=== PATIENT | male | born 1960 | race Caucasian/White ===

== ENCOUNTER → 2021-01-26 | Outpatient (REF) ==
--- NOTE | 2021-01-26 15:46 | Diagnostic Imaging Report ---
INDICATION: Right posterior knee pain. TIME OF EXAM: 3:44 PM. EXAMINATION: Three views of the right knee were obtained. FINDINGS: Alignment is normal. The articular surfaces are smooth. No fracture, dislocation or effusion is seen. IMPRESSION: No acute abnormality is detected. Dictated by: Dictated on workstation # [id number]
== END ==
LOC: OCC 15:18
PROVIDERS: ATTEND Family Medicine
DX: M25.561 Pain in right knee (principal)
CPT/HCPCS: 73562

== ENCOUNTER → 2021-01-29 | Outpatient (REF) | payer OTHER ==
--- NOTE | 2021-01-29 16:11 | Diagnostic Imaging Report ---
PROCEDURE: MRI right joint lower extremity without contrast. TECHNIQUE: Multiplanar, multisequence non contrast-enhanced MRI of the right lower extremity was accomplished. INDICATION: Right knee pain, felt a pop. COMPARISON: Radiographs from 01/26/2021. FINDINGS: No acute fracture is seen in the right knee. Alignment appears normal. There is a small right knee joint effusion. The articular cartilage in the patellofemoral compartment demonstrates full-thickness cartilage loss at the median ridge and medial facet. The cartilage in the medial and lateral compartments demonstrates mild surface irregularity with no large full-thickness defects. The medial meniscus demonstrates increased signal, likely from intrasubstance degeneration. There does appear to be extension to the inferior articular surface, consistent with tear. The lateral meniscus demonstrates intrasubstance degeneration, but no definite tear is seen. The anterior and posterior cruciate ligaments are intact. The medial collateral ligament demonstrates adjacent edema which is thought to be due to the underlying meniscal pathology. The lateral collateral ligamentous complex is intact. The extensor mechanism is intact. The medial and lateral retinacula are intact. There is a small leaking Giron's cyst. IMPRESSION: 1. 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 2. Mild cartilage loss in the right knee. 3. Small right knee joint effusion. Small leaking Giron's cyst. Dictated by: Dictated on workstation # [id number]
== END ==
LOC: OCC 12:26 → EDSTATUS 12:30
PROVIDERS: ATTEND Family Medicine
DX: M25.561 Pain in right knee (principal)
CPT/HCPCS: 73721

== ENCOUNTER 2022-01-16 12:45 | Inpatient (IN) | payer BC ==
[~2022-01-16] VITALS: Ht 183 cm; Wt 80.0 kg
--- NOTE | 2022-01-23 05:53 | HISTORY AND PHYSICAL ---
ADMISSION HISTORY AND PHYSICAL DATE OF ADMISSION: 01/30/2022 This will be for inpatient admission on 01/30/2022 for right total knee arthroplasty. The patient will require inpatient admission for pain management, need for physical therapy and gait abnormalities. INDICATION: The patient is a 61-year-old gentleman with longstanding right knee pain. He is undergoing treatment with injections as well as arthroscopy without relief. Radiographs reveal severe medial and patellofemoral arthrosis. At the time of arthroscopy, he was found to have grade IV changes medially in his patellofemoral joint. Due to functional impairment and failure to improve with conservative measures, the patient elected to proceed with surgical intervention. REVIEW OF SYSTEMS: No chest pain, no shortness of breath. No dysuria. PAST MEDICAL HISTORY: Headaches and arthritis. PAST SURGICAL HISTORY: NSR, tonsillectomy, nasal polypectomy, appendectomy, right knee arthroscopy. FAMILY HISTORY: Significant for cancer and diabetes. Primary care provider, Dakota Grant. MEDICATIONS: Paroxetine, aspirin, Zyrtec. ALLERGIES: No known drug allergies. SOCIAL HISTORY: The patient denies tobacco use. He drinks alcohol occasionally. PHYSICAL EXAMINATION: GENERAL: The patient is well-developed, well-nourished, in no acute distress. HEENT: Normocephalic, atraumatic. Pupils equal, round, reactive to light. Oropharynx is clear. NECK: Supple, with no lymphadenopathy. LUNGS: Clear to auscultation bilaterally. HEART: Regular rate and rhythm. ABDOMEN: Soft, nontender, nondistended. EXTREMITIES: The right knee demonstrates varus alignment. He has marked patellofemoral crepitus and pain with patellar loading. Range of motion is 0/3/125. No varus or valgus laxity. Negative anterior and posterior drawer, negative Justen. He ambulates with an antalgic gait on the right. IMPRESSION: Right knee severe osteoarthritis, unresponsive to conservative measures. PLAN: Right total knee arthroplasty. The risks, benefits, options, ramifications and recovery have been discussed at length with the patient. He understands and wishes to proceed. This will be for regular inpatient admission on 01/30/2022. Job ID: [id number] DocumentID: [id number] Dictated Date: 01/14/2022 09:23:22 Mainframe Architect Date: 01/14/2022 09:45:00 Dictated By: ALIVIA VALERA MD
[2022-01-23] MEDS ORDERED: ASPI81TA16 PO (09:19)
[2022-01-23] MEDS ORDERED: ACET-2267 PO (09:19)
[2022-01-30] VITALS (10 sets, daily range): BP systolic 115–163; BP diastolic 38–91
[2022-01-30] MEDS ORDERED: MIDAZOLAM 2 MG/2 ML (VERSED) VIAL ONE (06:36)
[2022-01-30] MEDS ORDERED: ROPIVACAINE 5MG/ML 30ML VIAL ONE (06:36)
[2022-01-30] MEDS ORDERED: fentaNYL INJ 100 MCG/2 ML AMP ONE (06:36)
[2022-01-30] MEDS ORDERED: LIDOCAINE PF 2% 5 ML (XYLOCAINE) VIAL ONE ×2 (06:39→06:54)
[2022-01-30] MEDS ORDERED: CEFUROXIME INJECTION 1,500 MG in NS (IVPB) 50 ML IV ONE (06:45)
[2022-01-30] MEDS ORDERED: ONDANSETRON 4 MG/2 ML (SDV) Z0FRAN ONE (06:54)
[2022-01-30] MEDS ORDERED: proPOfol 200 MG/20 ML (DIPRIVAN) VIAL IV ONE (06:54)
[2022-01-30] MEDS ORDERED: SEVOFLURANE (ULTANE) 15 ML INHAL SOLN ONE ×2 (06:54→08:58)
[2022-01-30] MEDS: LACTATED RINGERS 1,000 ML IV PRN ×2 (06:55→08:09)
[2022-01-30] MEDS ORDERED: morphine PCA 100 MG/100 ML BAG IV PRN (07:15)
[2022-01-30] MEDS ORDERED: diphenhydrAMINE 50 MG/ML INJ (BENADRYL) IVP PRN (07:15)
[2022-01-30] MEDS ORDERED: ONDANSETRON 4 MG/2 ML (SDV) Z0FRAN IVP PRN ×2 (07:15→09:30)
--- NOTE | 2022-01-30 07:15 | Progress Note-Pre Operative ---
Pre-Operative Progress Note Date of Available H&P: Jan 14, 2022 Date H&P Reviewed: Jan 30, 2022 Time H&P Reviewed: 07:11 Changes from last HP none Pre-Operative Diagnosis: right knee primary osteoarthritis ALIVIA VALERA MD Jan 30, 2022 07:15
--- NOTE | 2022-01-30 07:16 | Progress Note-Post Operative ---
Post-Operative Progess Note Surgeon (s)/Inspector Health Care Facilities (s) Surgeon ALIVIA VALERA MD Inspector Health Care Facilities: Matheus Richards Pre-Operative Diagnosis right knee primary osteoarthritis Post-Operative Diagnosis right knee primary osteoarthritis Procedure & Operative Findings Date of Procedure 01/30/22 Procedure Performed/Findings right total knee arthroplasty Anesthesia Type GETA Estimated Blood Loss Estimated blood loss (mL): minimal Specimens/Packing Specimens Removed none Packing: none ALIVIA VALERA MD Jan 30, 2022 07:16
--- NOTE | 2022-01-30 07:18 | D/C HH Face to Face Order ---
D/C Face to Face Orders Reconcile Patient Problems Problems Reviewed?: Yes Instructions for Patient Via [facility], Patient Instructions/FollowUp: three weeks Physician to follow Patient: three weeks Discharge Diet for Home: Regular Diet Patient Data-Allergies,Ht & Wt Patient Allergies: Coded Allergies: No Known Drug Allergies (Unverified , 01/23/22) Home Health Need/Face to Face Date of Face to Face: Jan 30, 2022 Clinical Findings: Muscle weakness, Pain with ambulation, Unsteady gait I have seen Pt zyar-xh-fyvw: Yes Discharged To: Home Diagnosis/Conditions: right total knee arthroplasty Patient is Homebound due to: Muscle weakness, Pain w/ambulation Homebound Status Due to the above stated illness, injury or surgical procedure (medical condition or diagnosis) and associated clinical findings, the patient is homebound because of his/her inability to leave home except with aid of a supportive device and/or person AND leaving the home requires a considerable and taxing effort or is medically contraindicated. Pt req the following assistanc: Walker Home Health Nursing Orders Home Health Services Order: Physical Therapy-Evaluate & Treat DC right knee domenica and apply steri strips 02/13/22 Therapy Orders Therapy Orders: Physical Therapy, PT to assess for OT Therapy Specific Orders: Eval assistive deivces, Teach enviro modifications/safety, Gait training, Increase strength/endurance, Provider maintenance therapy, Restore ROM Certify Stmt I certify that this patient is under my care and that I, a nurse practitioner or a physician; a doctor assistant working with me, had a face to face encounter that - meets the physician face to face encounter requirements with this patient as dated. ALIVIA VALERA MD Jan 30, 2022 07:18
[2022-01-30] MEDS ORDERED: INTRA-ARTICULAR IU ONE ×5 (07:30)
[2022-01-30] MEDS ORDERED: TRANEXAMIC ACID 100 MG/ML 10 ML INJECTION ONE (07:44)
[2022-01-30] MEDS ORDERED: HYDROmorphone 2 MG/ML VIAL (DILAUDID) ONE (08:00)
[2022-01-30] MEDS ORDERED: KETOROLAC 30 MG/ML VIAL ONE (08:41)
[2022-01-30] MEDS: SENNA W/DOCUSATE (SENOKOT S) TABLET PO SCH ×2 (09:00→20:45)
[2022-01-30] MEDS ORDERED: HYDROmorphone 2 MG/ML VIAL (DILAUDID) IV ONE (09:30)
[2022-01-30] MEDS ORDERED: MEPERIDINE (DEMEROL) INJ 50 MG/ML ONE (09:32)
[2022-01-30] MEDS: NS IV 1000 ML 1,000 ML IV SCH ×2 (10:37→16:32)
--- NOTE | 2022-01-30 11:00 | Progress Note ---
Standard Progress Note Progress Notes/Assess & Plan Date Seen by a Provider: Jan 30, 2022 Time Seen by a Provider: 09:27 Progress/Assessment & Plan post op check no complaints radiographs--Hw well positioned without fracture RLE--2 plus DP pulse with brisk cap refill intact DF and PF of toes and ankle sensation intact to light touch throughout s/p R TKA mobilize as able ALIVIA VALERA MD Jan 30, 2022 11:00
[2022-01-30] MEDS: oxyCODONE/APAP 5/325MG (PERCOCET 5) TABLET PO PRN (11:15)
--- NOTE | 2022-01-30 14:20 | OPERATIVE REPORT ---
DATE OF SERVICE: 01/30/2022 PREOPERATIVE DIAGNOSIS: Right knee primary osteoarthritis. POSTOPERATIVE DIAGNOSIS: Right knee primary osteoarthritis. PROCEDURE: Right total knee arthroplasty. SURGEON: Nelson Allen MD MOBILE HOME PARK MANAGER: Matheus Rainey, who assisted throughout the procedure and closed the incision. ANESTHESIA: General endotracheal by Gilbert Sotro CRNA. TOURNIQUET TIME: Approximately 60 minutes at 300 mmHg. ESTIMATED BLOOD LOSS: Minimal. DRAINS: None. COMPLICATIONS: None. POSTOPERATIVE PLAN: Routine protocol. The patient was transferred to recovery room awake and in stable condition. MATERIALS: MicroPort cemented size 6 femur, cemented size 6 tibia with a 10 mm insert and a cemented size 32 patellar button. STATEMENT OF MEDICAL NECESSITY: The patient is a 61-year-old gentleman with longstanding progressive right knee pain. He had undergone treatment with arthroscopy, injections and anti-inflammatories without relief. He had functional impairment, despite extensive conservative measures and because of this, elected to proceed with surgical intervention. DESCRIPTION OF PROCEDURE: After risks and benefits of the procedure were discussed and questions were answered and informed consent was signed and placed on the chart, the operative site was confirmed in the preoperative holding area initialed by the surgeon. The patient was then transferred to the operating room. After adequate levels of general endotracheal anesthetic were obtained, a timeout was called, confirming the operative site. The right lower extremity was prepped and draped in the usual sterile fashion with the leg elevated and the knee flexed, tourniquet was inflated to 300 mmHg. Standard anterior approach was utilized. Hemostasis was obtained with cautery. Medial parapatellar arthrotomy was performed, leaving 1 cm cuff for later reattachment. A portion of the fat pad was resected. A subperiosteal release was performed on the proximal medial tibia, being careful to stay on the bony surface. The ACL was resected. The intramedullary guide was passed into the femoral canal. The distal cutting block was placed. Distal cut was made. The femur was sized to a size 6. The 6 cutting block was placed parallel to the epicondylar axis and cuts were made from posterior to anterior. Subperiosteal release was then carefully performed on the posterior distal femur, being careful to stay on the bony surface. Intramedullary guide was then passed into the tibial canal and the cutting block was placed. The drop prasanth transected the intermalleolar axis and the cut was made, baseplate was pinned into position and the drop prasanth transected the intramedullary access and this was perforated with the drill and keel punch. The femoral trial was placed and the trochlear cut was made. The patella was then prepared by resecting 10 mm off the undersurface. The peg guide was placed and the peg holes were drilled. A 32 trial was placed with a 10 mm insert. The knee was taken through range of motion. Full extension was easily obtained, 120 degrees of flexion with gravity was easily obtained. The patella tracked well. There was no anterior/posterior medial/lateral laxity in flexion or extension. The trials were removed. The joint was irrigated with pulse lavage. Periarticular block was placed in the posterior capsule, medial and lateral retinaculum, extensor mechanism and subcutaneous tissues. The bone ends were irrigated. The tibial baseplate was cemented into position. Excess cement was removed. The superior surface was irrigated and dried and the polyethylene insert was placed. Distal femur was then irrigated and dried and the femoral prosthesis was cemented into position. Excess cement was removed. The knee was brought out in full extension until the cement cured. The undersurface of the patella was irrigated and dried and the patellar button was cemented into position. Excess cement was removed. Once the cement had cured, the knee was taken through a range of motion. Full extension was easily obtained, 120 degrees of flexion with gravity was easily obtained. The patella tracked well. There was no anterior/posterior medial/lateral laxity in flexion or extension. The joint was further irrigated with pulse lavage. The arthrotomy was closed with #2 Tevdek in ewnybu-tf-pwxcu interrupted fashion. The knee was flexed. The repair was stable. Subcutaneous tissues were irrigated with pulse lavage using a total of 6 liters throughout the procedure. 0 Vicryl was used for this deep subcutaneous layer, 2-0 Vicryl for the superficial subcutaneous layer, domenica were used on the skin. A soft dressing was applied. The tourniquet was deflated and the patient was transferred to recovery room awake and in stable condition. Job ID: [id number] DocumentID: [id number] Dictated Date: 01/30/2022 09:21:31 Supervisor Record Press Date: 01/30/2022 14:17:00 Dictated By: NELSON ALLEN MD
--- NOTE | 2022-01-30 14:26 | Physical Therapy Evaluation ---
PT Evaluation-General Medical Diagnosis Admission Date Jan 30, 2022 at 05:54 Medical Diagnosis: right TKA Onset Date: Jan 30, 2022 Therapy Diagnosis Therapy Diagnosis: Gait deficit Precautions Precautions/Isolations: Fall Prevention, Standard Precautions Weight Bear Status Right Lower Extremity: Right Weight Bearing/Tolerated Left Lower Extremity: Left Full Weight Bearing Referral Physician: Dr. Allen Reason for Referral: Evaluation/Treatment Medical History Reviewed History: Yes Social History Home: Multilevel Current Living Status: Spouse Entry Into Home: Stairs Without Railing PT Steps Into Home: 3 PT Steps Inside Home: 14 Prior Prior Level of Function SCALE: Activities may be completed with or without assistive devices. 2-Iwywalfdti-cumplra completes the activity by him/herself with no assistance from a helper. 5-Set-up or Clean-up Assistance-helper sets up or cleans up; patient completes activity. Butler assists only prior to or following the activity. 4-Supervision or Touching Assistance-helper provides verbal cues and/or touching/steadying and/or contact guard assistance as patient completes activity. Assistance may be provided throughout the activity or intermittently. 3-Partial/Moderate Assistance-helper does LESS THAN HALF the effort. Butler lifts, holds or supports trunk or limbs, but provides less than half the effort. 2-Substantial/Maximal Assistance-helper does MORE THAN HALF the effort. Butler lifts or holds trunk or limbs and provides more than half the effort. 9-Wawdzegzl-tpklwz does ALL the effort. Patient does none of the effort to complete the activity. Or, the assistance of 2 or more helpers is required for the patient to complete the activity. If activity was not attempted, code reason: 7-Patient Refused. 9-Not Applicable-not attempted and the patient did not perform the activity before the current illness, exacerbation or injury. 10-Not Attempted due to Environmental Limitations-(lack of equipment, weather restraints, etc.). 88-Not Attempted due to Medical Conditions or Safety Concerns. Bed Mobility: 6 Transfers (B,C,W/C): 6 Gait: 6 Stairs: 6 Indoor Mobility (Ambulation): Independent Stairs: Independent Prior Devices Use: None FWW, Crutches PT Evaluation-Current Objective Patient Orientation: Person, Time, Situation Attachments: Polar Pack, IV ROM/Strength ROM Lower Extremities Left WFLs all planes; Right knee extension 15 degrees from neutral, knee flexion 95 degrees Strength Lower Extremities Left 5/5 all planes; Right knee extension 3/5, flexion 3/5. All other right LE planes 5/5 Sensory Vision: Functional Hearing: Functional Sensation Right Lower Extremit: Intact Sensation Left Lower Extremity: Intact Transfers Roll Left to Right (QC): 4 Sit to Lying (QC): 4 Lying to Sitting/Side of Bed(Q: 4 Sit to Stand (QC): 4 Chair/Bjz-jn-Ialmi Xfer(QC): 4 Toilet Transfer (QC): 4 Gait Does the Patient Walk?: Yes Mode of Locomotion: Walk Anticipated Mode of Locomotion: Walk Walk 10 feet (QC): 4 Walk 50 ft with 2 Turns(QC): 4 Distance: 80 feet Gait Assistive Device: FWW Balance Sitting Static: Normal Sitting Dynamic: Normal Standing Static: Good Standing Dynamic: Good Assessment/Needs Patient tolerated evaluation well. Demonstrates SBA for all bed mobility and transfers. Patient ambulates 80 feet with FWW, with SBA and verbal cues for safety, progression, TKE and step length. Patient lacks ~10-15 degrees TKE in stance phase of right LE. He also attempts to take too large of a step with right LE, increasing his fall risk and placing him too close to the FWW. Patient in chair post treatment with all needs met, nursing notified, call light in hand. Rehab Potential: Good PT Intern Product Marketing Manager Goals Halfway Goals PT Intern Product Marketing Manager Goals Time Frame: Feb 15, 2022 Roll Left & Right (QC): 6 Sit to Lying (QC): 6 Lying-Sitting on Side/Bed(QC): 6 Sit to Stand (QC): 6 Chair/Ohq-yh-Ccwrf Xfer(QC): 6 Toilet Transfer (QC): 6 Does the Patient Walk: Yes Walk 10 feet (QC): 6 Walk 50ft with 2 Turns (QC): 6 Walk 150 ft (QC): 6 Walking 10ft on Uneven Surface: 6 1 Step (curb) (QC): 4 4 Steps (QC): 4 12 Steps (QC): 4 PT Plan Problem List Problem List: Activity Tolerance, Functional Strength, Safety, Balance, Gait, Transfer, Bed Mobility, ROM Treatment/Plan Treatment Plan: Continue Plan of Care Treatment Plan: Bed Mobility, Education, Functional Activity Tram, Functional Strength, Gait, Safety, Therapeutic Exercise, Transfers Treatment Duration: Feb 16, 2022 Frequency: 11 times per week Estimated Hrs Per Day: .25 hour per day Patient and/or Family Agrees t: Yes Safety Risks/Education Patient Education: Gait Training Teaching Recipient: Patient Teaching Methods: Demonstration, Discussion Response to Teaching: Verbalize Understanding, Return Demonstration Time Time In: 1324 Time Out: 1350 DATE: Jan 30, 2022 Total Billed Treatment Time: 26 Total Billed Treatment Visit, Lakhwinder DORANTES JOHN A PT Jan 30, 2022 14:26
[2022-01-30] MEDS: CEFUROXIME INJECTION 750 MG in NS (IVPB) 50 ML IV SCH ×2 (15:43→23:36)
--- NOTE | 2022-01-30 16:30 | Diagnostic Imaging Report ---
EXAMINATION: Right knee, two view. HISTORY: Postop. COMPARISON: None available. FINDINGS: There are postsurgical changes of right total knee arthroplasty. Skin domenica and subcutaneous gas are present. There is gas in the joint space. No acute fracture is seen. No dislocation. Alignment is near-anatomic. IMPRESSION: Expected postsurgical changes of right total knee arthroplasty. Dictated by: Dictated on workstation # [id number]
--- NOTE | 2022-01-30 16:44 | Consultation - Hospitalist ---
HPI History of Present Illness: HPI/Chief Complaint Patient is a 61-year-old male with past medical history of osteoarthritis who was admitted to the hospital by Dr. Allen for total knee arthroplasty. I have seen him postoperatively and he reports doing very well. He states his pain is controlled. Heis about to work with physical therapy. His blood pressure had been a little bit elevated which she says is abnormal for him and we discussed management of this. He has no other complaints. I am consulted for medical management. Source: patient Date Seen 01/30/22 Attending Physician Dakota Grant MD PCP Admitting Physician: Nelson Allen MD Attending Physician: Nelson Allen MD Referring Physician Date of Admission Jan 30, 2022 at 05:54 Home Medications & Allergies Home Medications Reviewed patient Home Medication Reconciliation performed by pharmacy medication reconciliations bioinformatics research technician and/or nursing. Patients Allergies have been reviewed. Allergies Allergies Coded Allergies No Known Drug Allergies (Ktpmpssmok39/7/22) Past Wzfutdb-Jbzchv-Lkkdbz Hx Immunizations Up To Date Date of Influenza Vaccine: Nov 23, 2021 First/Initial COVID19 Vaccinat: 2020 Second COVID19 Vaccination Christiano: 2020 Seasonal Allergies Seasonal Allergies: Yes Past Medical History Surgeries: Appendectomy, Orthopedic Currently Using CPAP: No Currently Using BIPAP: No Anxiety Blood Disorders: No Family Medical History Reviewed Nursing Family Hx Review of Systems Constitutional: no symptoms reported EENTM: no symptoms reported Respiratory: no symptoms reported Cardiovascular: no symptoms reported Gastrointestinal: no symptoms reported Genitourinary: no symptoms reported Musculoskeletal: joint pain Skin: no symptoms reported Psychiatric/Neurological: No Symptoms Reported Physical Exam Physical Exam Vital Signs Vital Signs - First Documented 01/30/22 07:18 Temp 36.2 Pulse 80 Resp 18 B/P (MAP) 146/66 (92) Pulse Ox 98 O2 Delivery Room Air Capillary Refill : Less Than 3 Seconds Height, Weight, BMI Height: '" Weight: lbs. oz. kg; 23.88 BMI Method: General Appearance: No Apparent Distress, WD/WN HEENT: PERRL/EOMI, Moist Mucous Membranes; No Scleral Icterus (L), No Scleral Icterus (R) Neck: Normal Inspection, Supple Respiratory: Lungs Clear, No Accessory Muscle Use, No Respiratory Distress Cardiovascular: Regular Rate, Rhythm, No Murmur Gastrointestinal: Normal Bowel Sounds, Non Tender, Soft Extremity: Normal Capillary Refill, No Calf Tenderness, No Pedal Edema, Other (alexandria hose in place, surgical dressing noted) Neurologic/Psychiatric: Alert, Oriented x3, Normal Mood/Affect Skin: Normal Color, Warm/Dry Results Results/Procedures Labs Laboratory Tests 01/31/22 05:30 02/01/22 05:45 Patient resulted labs reviewed. Imaging: Reviewed Imaging Report Imaging [facility] [place], [place] NAME: [facility] REC#: [id number] PT STATUS: ADM IN : 1960 PHYSICIAN: BECKI JASON ADMIT DATE: 01/30/22 Signed Date of Exam:01/30/22 KNEE, RIGHT, 2 VIEWS EXAMINATION: Right knee, two view. HISTORY: Postop. COMPARISON: None available. FINDINGS: There are postsurgical changes of right total knee arthroplasty. Skin domenica and subcutaneous gas are present. There is gas in the joint space. No acute fracture is seen. No dislocation. Alignment is near-anatomic. IMPRESSION: Expected postsurgical changes of right total knee arthroplasty. Dictated by: Dictated on workstation # [id number] Dict: 01/30/227 Trans: 01/30/221929 [facility] [id number] Interpreted by: HANNAH JOHNSON MD Electronically signed by: HANNAH JOHNSON MD 01/30/221929 Assessment/Plan Assessment and Plan Assess & Plan/Chief Complaint Right Knee OA s/p TKA management per primary REHABILITATION COUNSELOR for pain control PT/OT Bowel regimen Elevated BP Trend Likely due to sugery and pain DVT ppx: Lovenox Will round prn, please call with any questions LAUREN PAZ MD Jan 30, 2022 16:44
[2022-01-31 03:35] VITALS: BP 127/62
[2022-01-31] MEDS: NS IV 1000 ML 1,000 ML IV SCH ×2 (05:16→16:51)
[2022-01-31] MEDS: MULTIVIT W/MINERALS TAB (THERAGRAN M) PO SCH (05:16)
[2022-01-31 06:01] LABS: HEMOGLOBIN 11.8 g/dL (13.3-17.7)
[2022-01-31] MEDS: oxyCODONE/APAP 5/325MG (PERCOCET 5) TABLET PO PRN ×8 (07:53→22:55)
[2022-01-31] MEDS: ENOXAPARIN INJECTION 30 MG/0.3 ML SYR SC SCH ×2 (07:54→20:43)
--- NOTE | 2022-01-31 08:02 | Progress Note ---
Standard Progress Note Progress Notes/Assess & Plan Date Seen by a Provider: Jan 31, 2022 Time Seen by a Provider: 07:52 Progress/Assessment & Plan post op check no complaints radiographs--Hw well positioned without fracture RLE--2 plus DP pulse with brisk cap refill intact DF and PF of toes and ankle sensation intact to light touch throughout s/p R TKA mobilize as able Final Diagnosis no complaints Vital Signs Date Time Temp Pulse Resp B/P (MAP) Pulse Ox O2 Delivery O2 Flow Rate FiO2 01/31/22 05:31 16 01/31/22 03:35 36.5 75 18 127/62 (83) 98 Room Air 01/30/22 23:27 37.3 83 18 127/38 (67) 97 Room Air 01/30/22 20:59 Room Air 01/30/22 19:15 37.1 99 20 115/70 (85) 95 Room Air 01/30/22 15:34 37.0 90 20 159/73 (101) 97 Room Air 01/30/22 12:14 36.1 84 18 163/80 (107) 98 Room Air 01/30/22 12:00 16 01/30/22 10:00 36.6 20 141/77 (98) 94 Room Air 01/30/22 10:00 Room Air 01/30/22 09:50 20 142/77 (98) 94 Room Air 01/30/22 09:45 OxyMask 2.00 01/30/22 09:40 20 100 OxyMask 3.00 01/30/22 09:30 OxyMask 4.00 01/30/22 09:30 20 146/91 (109) 96 OxyMask 4.00 01/30/22 09:20 20 145/75 (98) 100 OxyMask 10.00 01/30/22 09:15 OxyMask 10.00 01/30/22 09:09 36.6 18 123/61 (81) 100 OxyMask 10.00 01/30/22 09:09 OxyMask 10.00 I & O 01/31/22 07:00 Intake Total 3020 ml Balance 3020 ml Laboratory Tests Test 01/31/22 05:30 Range/Units Hemoglobin 11.8 L 13.3-17.7 g/dL Hematocrit 36 L 40-54 % RLE--dressing intact ambulating in brown s/p RTKA doing well PT/OT ALIVIA VALERA MD Jan 31, 2022 08:02
[2022-01-31] MEDS: SENNA W/DOCUSATE (SENOKOT S) TABLET PO SCH ×2 (08:50→20:42)
[2022-01-31] MEDS: ASPIRIN E.C. 81 MG (ECOTRIN) TAB PO SCH (08:51)
--- NOTE | 2022-01-31 10:10 | Physical Therapy Daily Note ---
PT Daily Note-Current Subjective Patient agrees to PT. Pain Numeric Pain Scale: 10-Worst Possible Pain Location: Right Location Body Site: Knee Pain Description: Acute Comment: SCARRER and pain pill issued Section J - Health Conditions 1. Rarely or not at all 2. Occasionally 3. Frequently 4. Almost constantly 8. Unable to answer Pain Effect on Sleep: 2 Pain Interference with Therapy: 1 Pain Interference w/Day-to-Day: 2 Mental Status Patient Orientation: Normal For Age Attachments: Polar Pack, IV Transfers SCALE: Activities may be completed with or without assistive devices. 8-Aaalqfitof-kuvadri completes the activity by him/herself with no assistance from a helper. 5-Set-up or Clean-up Assistance-helper sets up or cleans up; patient completes activity. [place] assists only prior to or following the activity. 4-Supervision or Touching Assistance-helper provides verbal cues and/or touching/steadying and/or contact guard assistance as patient completes activity. Assistance may be provided throughout the activity or intermittently. 3-Partial/Moderate Assistance-helper does LESS THAN HALF the effort. [place] lifts, holds or supports trunk or limbs, but provides less than half the effort. 2-Substantial/Maximal Assistance-helper does MORE THAN HALF the effort. [place] lifts or holds trunk or limbs and provides more than half the effort. 5-Rwljxcnzq-xstbre does ALL the effort. Patient does none of the effort to complete the activity. Or, the assistance of 2 or more helpers is required for the patient to complete the activity. If activity was not attempted, code reason: 7-Patient Refused. 9-Not Applicable-not attempted and the patient did not perform the activity before the current illness, exacerbation or injury. 10-Not Attempted due to Environmental Limitations-(lack of equipment, weather restraints, etc.). 88-Not Attempted due to Medical Conditions or Safety Concerns. Sit to Stand (QC): 6 Weight Bearing Right Lower Extremity: Right Weight Bearing/Tolerated Left Lower Extremity: Left Full Weight Bearing Gait Training Distance: 500' Walk 10 feet (QC): 5 Walk 50 ft with 2 Turns(QC): 5 Walk 150 ft (QC): 5 Gait Assistive Device: FWW reciprocal pattern/antalgic Exercises Supine Ex: Ankle pumps, Quad Set, Heel Slides, Straight leg raise Supine Reps: 15 Seated Therapy Exercises: Long arc quads Seated Reps: 15 Assessment AROM improving right knee 5-80 degrees. Patient progressing per treatment plan and will dismiss to home tomorrow after session. PT Fpc Goals Fpc Goals PT Sales And Distribution Clerk Goals Time Frame: Feb 15, 2022 Roll Left & Right (QC): 6 Sit to Lying (QC): 6 Lying-Sitting on Side/Bed(QC): 6 Sit to Stand (QC): 6 Chair/Sza-mh-Mjaor Xfer(QC): 6 Toilet Transfer (QC): 6 Does the Patient Walk: Yes Walk 10 feet (QC): 6 Walk 50ft with 2 Turns (QC): 6 Walk 150 ft (QC): 6 Walking 10ft on Uneven Surface: 6 1 Step (curb) (QC): 4 4 Steps (QC): 4 12 Steps (QC): 4 PT Plan Treatment/Plan Treatment Plan: Continue Plan of Care Treatment Plan: Bed Mobility, Education, Functional Activity Tram, Functional Strength, Gait, Safety, Therapeutic Exercise, Transfers Treatment Duration: Feb 16, 2022 Frequency: 11 times per week Estimated Hrs Per Day: .25 hour per day Patient and/or Family Agrees t: Yes Time Time In: 730 Time Out: 754 DATE: Jan 31, 2022 Total Billed Treatment Time: 24 Total Billed Treatment 1 visit EX 14 min GT 10 min BERNABE BILLY PT Jan 31, 2022 10:10
[2022-01-31 12:02] VITALS: BP 115/63
--- NOTE | 2022-01-31 12:40 | Anesthesia-General Post-Op ---
General Patient Condition Mental Status/LOC: Same as Preop Cardiovascular: Satisfactory Nausea/Vomiting: Absent Respiratory: Satisfactory Pain: Controlled Complications: Absent Post Op Complications Complications None Follow Up Care/Instructions Patient Instructions None needed. Anesthesia/Patient Condition Patient Condition Patient is doing well, no complaints, stable vital signs, no apparent adverse anesthesia problems. No complications reported per nursing. GEO PAUL CRNA Jan 31, 2022 12:40
--- NOTE | 2022-01-31 14:15 | Occupational Therapy Eval ---
OT Evaluation-General/PLF Medical Diagnosis Admission Date Jan 30, 2022 at 05:54 Medical Diagnosis: right TKA Onset Date: Jan 30, 2022 Therapy Diagnosis Therapy Diagnosis: n/a Precautions Precautions/Isolations: Fall Prevention, Standard Precautions Referral Physician: Dr. Allen Referral Reason: Evaluation/Treatment Medical History Additional Medical History arthritis, headaches Current History s/p R TKA 01/31/22 Social History Home: [facility] Current Living Status: Spouse Entry Into Home: Stairs Without Railing Steps Into Home: 3 Steps Inside Home: 14 ADL-Prior Level of Function SCALE: Activities may be completed with or without assistive devices. 0-Vjgvyrrguf-wvhvpjz completes the activity by him/herself with no assistance from a helper. 5-Set-up or Clean-up Assistance-helper sets up or cleans up; patient completes activity. [place] assists only prior to or following the activity. 4-Supervision or Touching Assistance-helper provides verbal cues and/or touching/steadying and/or contact guard assistance as patient completes activity. Assistance may be provided throughout the activity or intermittently. 3-Partial/Moderate Assistance-helper does LESS THAN HALF the effort. [place] lifts, holds or supports trunk or limbs, but provides less than half the effort. 2-Substantial/Maximal Assistance-helper does MORE THAN HALF the effort. [place] lifts or holds trunk or limbs and provides more than half the effort. 6-Qpuizllcy-nntrix does ALL the effort. Patient does none of the effort to complete the activity. Or, the assistance of 2 or more helpers is required for the patient to complete the activity. If activity was not attempted, code reason: 7-Patient Refused. 9-Not Applicable-not attempted and the patient did not perform the activity before the current illness, exacerbation or injury. 10-Not Attempted due to Environmental Limitations-(lack of equipment, weather restraints, etc.). 88-Not Attempted due to Medical Conditions or Safety Concerns. ADL PLOF Comments Pt reports being IND with ADLS and functional mobility at [facility], no AD. Pt lives in a 2 story house with a walk out basement. Pt could stay at the basement level where his clothes, bathroom and bedroom are located, his would have to bring him meals. Pt's staircase to the 2nd level is a spiral staircase. Pt plans to have his daughter stay for a little while to assist as needed. Pt has a walk in shower. 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 OT Current Status Subjective Pt up ad krupa in room upon OT arrival. Pt appears emotional throughout tx due to pain in R knee. Mental Status/Objective Patient Orientation: Person, Place, Time, Situation Attachments: IV, Polar Pack Current Hand Dominance: Right Upper Extremity ROM WFL Upper Extremity Strength WFL ADL-Treatment Eating (QC): 6 Oral Hygiene (QC): 6 Toileting Hygiene (QC): 6 Other Treatments Pt up ad krupa in room, gathering items from bag on floor. Pt sat in recliner and performed functional mobility/transfers independently. Pt states no concerns with his ability to complete ADLs upon discharging, and pt's family can assist as needed. Pt declined need for further OT services. Post tx, pt in recliner, call light in reach and all needs met. Education OT Patient Education: Correct positioning, Energy conservation, Modified ADL techniques, Progress toward Goal/Update tx plan, Purpose of tx/functional activities, Rehab process Teaching Recipient: Patient Teaching Methods: Discussion Response to Teaching: Verbalize Understanding OT Director For [employer] Goals Prison Goals 1=Demonstrate adherence to instructed precautions during ADL tasks. 2=Patient will verbalize/demonstrate understanding of assistive devices/modifications for ADL. 3=Patient will improve strength/tolerance for activity to enable patient to perform ADL's. OT Education/Plan Problem List/Assessment Assessment: No Skilled OT Needs ID'd no skilled OT services indicated at this time, as pt has no concerns with his ability to complete ADLs and declines further OT services. Discharge Recommendations Plan/Recommendations: Discharge/Goals Met Treatment Plan/Plan of Care Patient would benefit from OT for education, treatment and training to promote independence in ADL's, mobility, safety and/or upper extremity function for ADL's. Plan of Care: ADL Retraining, Functional Mobility, UE Funct Exercise/Act Treatment Duration: Jan 31, 2022 Frequency: 1 time per week (eval only) Rehab Potential: Good Time Start Time: 13:18 Stop Time: 13:35 DATE: Jan 31, 2022 Total Time Billed (hr/min): 17 Billed Treatment Time 1, EVL VIKY RUIZ OT Jan 31, 2022 14:15
--- NOTE | 2022-01-31 14:30 | Physical Therapy Daily Note ---
PT Daily Note-Current Subjective Patient in 10 right knee pain. Pain Numeric Pain Scale: 10-Worst Possible Pain Location: Right Location Body Site: Knee Pain Description: Heavy Comment: pain pill issued prior Section J - Health Conditions 1. Rarely or not at all 2. Occasionally 3. Frequently 4. Almost constantly 8. Unable to answer Pain Effect on Sleep: 2 Pain Interference with Therapy: 3 Pain Interference w/Day-to-Day: 2 Mental Status Patient Orientation: Normal For Age Attachments: Polar Pack, IV Transfers SCALE: Activities may be completed with or without assistive devices. 1-Muityffnht-tqppgvv completes the activity by him/herself with no assistance from a helper. 5-Set-up or Clean-up Assistance-helper sets up or cleans up; patient completes activity. [place] assists only prior to or following the activity. 4-Supervision or Touching Assistance-helper provides verbal cues and/or touching/steadying and/or contact guard assistance as patient completes activity. Assistance may be provided throughout the activity or intermittently. 3-Partial/Moderate Assistance-helper does LESS THAN HALF the effort. [place] lifts, holds or supports trunk or limbs, but provides less than half the effort. 2-Substantial/Maximal Assistance-helper does MORE THAN HALF the effort. [place] lifts or holds trunk or limbs and provides more than half the effort. 6-Iuurwykdy-bkjwet does ALL the effort. Patient does none of the effort to complete the activity. Or, the assistance of 2 or more helpers is required for the patient to complete the activity. If activity was not attempted, code reason: 7-Patient Refused. 9-Not Applicable-not attempted and the patient did not perform the activity before the current illness, exacerbation or injury. 10-Not Attempted due to Environmental Limitations-(lack of equipment, weather restraints, etc.). 88-Not Attempted due to Medical Conditions or Safety Concerns. Sit to Stand (QC): 6 Weight Bearing Right Lower Extremity: Right Weight Bearing/Tolerated Left Lower Extremity: Left Full Weight Bearing Gait Training Distance: 250' Walk 10 feet (QC): 6 Walk 50 ft with 2 Turns(QC): 6 Walk 150 ft (QC): 6 Gait Assistive Device: FWW steady, antalgic gait sequence Exercises Supine Ex: Quad Set, Heel Slides Supine Reps: 15 Seated Therapy Exercises: Long arc quads Seated Reps: 15 Assessment Patient has difficulty with activating quad musculature. Patient progressing slow with treatment plan. PT Lead Net Software Developer Goals Residential Goals PT Residential Goals Time Frame: Feb 15, 2022 Roll Left & Right (QC): 6 Sit to Lying (QC): 6 Lying-Sitting on Side/Bed(QC): 6 Sit to Stand (QC): 6 Chair/Onl-zj-Bmgjq Xfer(QC): 6 Toilet Transfer (QC): 6 Does the Patient Walk: Yes Walk 10 feet (QC): 6 Walk 50ft with 2 Turns (QC): 6 Walk 150 ft (QC): 6 Walking 10ft on Uneven Surface: 6 1 Step (curb) (QC): 4 4 Steps (QC): 4 12 Steps (QC): 4 PT Plan Treatment/Plan Treatment Plan: Continue Plan of Care Treatment Plan: Bed Mobility, Education, Functional Activity Tram, Functional Strength, Gait, Safety, Therapeutic Exercise, Transfers Treatment Duration: Feb 16, 2022 Frequency: 11 times per week Estimated Hrs Per Day: .25 hour per day Patient and/or Family Agrees t: Yes Time Time In: 1327 Time Out: 1350 DATE: Jan 31, 2022 Total Billed Treatment Time: 23 Total Billed Treatment 1 visit EX 13 min GT 10 min BERNABE BILLY PT Jan 31, 2022 14:30
[2022-01-31 16:00] VITALS: BP 125/57
[2022-01-31] MEDS: CYCLOBENZAPRINE 10 MG (FLEXERIL) TAB PO PRN (18:24)
[2022-01-31 19:12] VITALS: BP 169/63
--- NOTE | 2022-01-31 23:15 | DISCHARGE SUMMARY ---
DIAGNOSES: 1. Right knee primary osteoarthritis. 2. Headaches. PROCEDURE: Right total knee arthroplasty. SUMMARY: The patient is a 61-year-old gentleman who underwent a right total knee arthroplasty on the date of admission. Postoperatively, he did well. At the time of discharge, he was tolerating his diet well and tolerating pain with oral pain medication. His wound was clean and dry. No calf tenderness. CONDITION AT DISCHARGE: Good. DISCHARGE DIET: Regular. FOLLOWUP: Followup is in 3 weeks. DISCHARGE MEDICATIONS: Home medications and one aspirin per day for 30 days and Percocet as needed for pain. ACTIVITIES: Weightbearing as tolerated with a walker. Physical therapy will be arranged. Job ID: [id number] DocumentID: [id number] Dictated Date: 01/31/2022 08:01:27 Poultry Husbandman Date: 01/31/2022 23:15:00 Dictated By: ALIVIA VALERA MD
[2022-02-01 00:21] VITALS: BP 135/68
[2022-02-01] MEDS: CYCLOBENZAPRINE 10 MG (FLEXERIL) TAB PO PRN ×2 (00:23→06:32)
[2022-02-01] MEDS: oxyCODONE/APAP 5/325MG (PERCOCET 5) TABLET PO PRN ×3 (01:35→06:04)
[2022-02-01 03:58] VITALS: BP 152/75
[2022-02-01] MEDS: NS IV 1000 ML 1,000 ML IV SCH (05:04)
[2022-02-01 06:14] LABS: HEMOGLOBIN 10.6 g/dL (13.3-17.7)
[2022-02-01] MEDS: MULTIVIT W/MINERALS TAB (THERAGRAN M) PO SCH (06:32)
--- NOTE | 2022-02-01 06:56 | Progress Note ---
Standard Progress Note Progress Notes/Assess & Plan Date Seen by a Provider: Feb 01, 2022 Time Seen by a Provider: 06:55 Progress/Assessment & Plan post op check no complaints radiographs--Hw well positioned without fracture RLE--2 plus DP pulse with brisk cap refill intact DF and PF of toes and ankle sensation intact to light touch throughout s/p R TKA mobilize as able Final Diagnosis no complaints Laboratory Tests Test 02/01/22 05:45 Range/Units Hemoglobin 10.6 L 13.3-17.7 g/dL Hematocrit 32 L 40-54 % Vital Signs Date Time Temp Pulse Resp B/P (MAP) Pulse Ox O2 Delivery O2 Flow Rate FiO2 02/01/22 05:34 18 02/01/22 04:35 37.4 02/01/22 03:58 37.4 89 20 152/75 (100) 99 Room Air 02/01/22 02:05 37.3 02/01/22 00:21 37.3 97 20 135/68 (90) 96 Room Air 01/31/22 22:23 16 01/31/22 20:58 96 Room Air 01/31/22 20:53 Room Air 01/31/22 19:58 37.6 01/31/22 19:12 37.6 89 20 169/63 (98) 96 Room Air 01/31/22 16:00 37.2 85 20 125/57 (79) 99 Room Air 01/31/22 12:02 37.2 88 19 115/63 (80) 98 Room Air 01/31/22 08:24 98 Room Air 2.00 I & O 02/01/22 06:59 Intake Total 4565 ml Balance 4565 ml RLE--incision clean and dry no calf tenderness neg Thomas's s/p RTKA doing well DC home after PT today ALIVIA VALERA MD Feb 01, 2022 06:56
[2022-02-01] MEDS ORDERED: morphine INJ 4 MG/ML 1 ML (VIAL/SYRINGE) IVP PRN (07:00)
[2022-02-01 08:00] VITALS: BP 137/74
[2022-02-01] MEDS: SENNA W/DOCUSATE (SENOKOT S) TABLET PO SCH (09:02)
[2022-02-01] MEDS: ASPIRIN E.C. 81 MG (ECOTRIN) TAB PO SCH (09:02)
[2022-02-01] MEDS: ENOXAPARIN INJECTION 30 MG/0.3 ML SYR SC SCH (09:02)
--- NOTE | 2022-02-01 09:48 | Physical Therapy Daily Note ---
PT Daily Note-Current Subjective Patient agrees to PT. Pain Numeric Pain Scale: 5-Moderate Pain Location: Right Location Body Site: Knee Pain Description: Acute Section J - Health Conditions 1. Rarely or not at all 2. Occasionally 3. Frequently 4. Almost constantly 8. Unable to answer Pain Effect on Sleep: 2 Pain Interference with Therapy: 2 Pain Interference w/Day-to-Day: 2 Mental Status Patient Orientation: Normal For Age Transfers SCALE: Activities may be completed with or without assistive devices. 6-Jeopsvrujz-nytalci completes the activity by him/herself with no assistance from a helper. 5-Set-up or Clean-up Assistance-helper sets up or cleans up; patient completes activity. [place] assists only prior to or following the activity. 4-Supervision or Touching Assistance-helper provides verbal cues and/or touching/steadying and/or contact guard assistance as patient completes activity. Assistance may be provided throughout the activity or intermittently. 3-Partial/Moderate Assistance-helper does LESS THAN HALF the effort. [place] lifts, holds or supports trunk or limbs, but provides less than half the effort. 2-Substantial/Maximal Assistance-helper does MORE THAN HALF the effort. [place] lifts or holds trunk or limbs and provides more than half the effort. 6-Oranbamjr-cjxhvc does ALL the effort. Patient does none of the effort to complete the activity. Or, the assistance of 2 or more helpers is required for the patient to complete the activity. If activity was not attempted, code reason: 7-Patient Refused. 9-Not Applicable-not attempted and the patient did not perform the activity befo re the current illness, exacerbation or injury. 10-Not Attempted due to Environmental Limitations-(lack of equipment, weather re straints, etc.). 88-Not Attempted due to Medical Conditions or Safety Concerns. Sit to Stand (QC): 6 Weight Bearing Right Lower Extremity: Right Weight Bearing/Tolerated Left Lower Extremity: Left Full Weight Bearing Gait Training Distance: 200' x 2 Walk 10 feet (QC): 6 Walk 50 ft with 2 Turns(QC): 6 Walk 150 ft (QC): 6 Gait Assistive Device: FWW reciprocal pattern/antalgic Stair Training Stair Training: Handrails/: 1 handrail, uses walker #of Steps: 12 1 Step (curb) (QC): 4 4 Steps (QC): 4 12 Steps (QC): 4 Stairs: Pattern: Step to Exercises Supine Ex: Quad Set, Heel Slides Supine Reps: 15 Seated Therapy Exercises: Ankle pumps, Long arc quads Seated Reps: 15 Assessment Patient continues to have difficulty with right quad activation. Was able to perform stair training. Unable to perform SLR or LAQ right LE. Patient dismissing to home with spouse and home health. PT Seismic Interpreter Goals Snf Goals PT Seismic Interpreter Goals Time Frame: Feb 15, 2022 Roll Left & Right (QC): 6 Sit to Lying (QC): 6 Lying-Sitting on Side/Bed(QC): 6 Sit to Stand (QC): 6 Chair/Cyd-xu-Ffmbv Xfer(QC): 6 Toilet Transfer (QC): 6 Does the Patient Walk: Yes Walk 10 feet (QC): 6 Walk 50ft with 2 Turns (QC): 6 Walk 150 ft (QC): 6 Walking 10ft on Uneven Surface: 6 1 Step (curb) (QC): 4 4 Steps (QC): 4 12 Steps (QC): 4 PT Plan Treatment/Plan Treatment Plan: Discontinue PT, goals met Treatment Plan: Bed Mobility, Education, Functional Activity Tram, Functional Strength, Gait, Safety, Therapeutic Exercise, Transfers Treatment Duration: Feb 16, 2022 Frequency: 11 times per week Estimated Hrs Per Day: .25 hour per day Patient and/or Family Agrees t: Yes Time Time In: 750 Time Out: 814 DATE: Feb 01, 2022 Total Billed Treatment Time: 24 Total Billed Treatment 1 visit FA 14 min EX 10 min BERNABE BILLY PT Feb 01, 2022 09:48
[2022-02-01 10:15] VITALS: BP 137/74
[2022-02-01] MEDS ORDERED: OXYC1TAB11 PO (15:30)
== END 2022-02-01 09:50 | disposition home health service (06) | DRG 470 ==
LOC: 4TH 01-30 05:54 → SURG 01-30 05:55 → 4TH 01-30 09:55
PROVIDERS: ADMIT Orthopaedic Surgery; ATTEND Orthopaedic Surgery
PROC: 0SRC0J9 Replacement of Right Knee Joint with Synthetic Substitute, Cemented, Open Approach (ICD-10-PCS; principal; 2022-01-30 07:30)
DX: M17.11 Unilateral primary osteoarthritis, right knee (principal); R51.9 Headache, unspecified; F41.9 Anxiety disorder, unspecified; R03.0 Elevated blood-pressure reading, without diagnosis of hypertension
CPT/HCPCS: 36415; 73560; 85014; 85018; 86850; 86900; 86901; 94664

== ENCOUNTER 2022-01-23 08:12 | Outpatient (CLI) | payer BC ==
[~2022-01-23] VITALS: Ht 182.9 cm; Wt 80.0 kg
[2022-01-23] MEDS ORDERED: ACET-2267 PO (09:19)
[2022-01-23] MEDS ORDERED: ASPI81TA16 PO (09:19)
[2022-01-23 09:31] LABS: BASOPHILS % (AUTO) 0 % (0-10); EOSINOPHILS # (AUTO) 0.1 10^3/uL (0.0-0.3); EOSINOPHILS % (AUTO) 1 % (0-10); HEMATOCRIT 43 % (40-54); HEMOGLOBIN 14.5 g/dL (13.3-17.7); LYMPHOCYTES % (AUTO) 18 % (12-44); MEAN CORPUSCULAR HEMOGLOBIN 29 pg (25-34); MEAN CORPUSCULAR HGB CONC 34 g/dL (32-36); MEAN CORPUSCULAR VOLUME 86 fL (80-99); MEAN PLATELET VOLUME 9.2 fL (9.0-12.2); MONOCYTES # (AUTO) 0.5 10^3/uL (0.0-1.0); MONOCYTES % (AUTO) 8 % (0-12); NEUTROPHILS % (AUTO) 72 % (42-75); PLATELET COUNT 246 10^3/uL (130-400); WHITE BLOOD COUNT 5.6 10^3/uL (4.3-11.0)
[2022-01-23 09:49] LABS: INR 0.8 (0.8-1.4); PROTHROMBIN TIME PATIENT 11.6 SEC (12.2-14.7)
[2022-01-23 09:58] LABS: BILIRUBIN,URINE NEGATIVE (NEGATIVE); CLARITY,URINE CLEAR; COLOR,URINE YELLOW; GLUCOSE, URINE (UA) NEGATIVE (NEGATIVE); KETONES,URINE NEGATIVE (NEGATIVE); LEUKOCYTE ESTERASE ,URINE NEGATIVE (NEGATIVE); NITRITE,URINE NEGATIVE (NEGATIVE); PH,URINE 6.5 (5-9); PROTEIN,URINE NEGATIVE (NEGATIVE)
[2022-01-23 10:00] LABS: ALBUMIN 4.4 GM/DL (3.2-4.5); BILIRUBIN,TOTAL 0.4 MG/DL (0.1-1.0); CALCIUM 9.4 MG/DL (8.5-10.1); CREATININE SERUM 1.02 MG/DL (0.60-1.30); POTASSIUM 4.2 MMOL/L (3.6-5.0); TOTAL PROTEIN 6.7 GM/DL (6.4-8.2)
[2022-01-23 10:27] LABS: BACTERIA,URINE NEGATIVE /HPF; SQUAMOUS EPITHELIAL CELL,UR RARE /HPF
[2022-01-23 10:31] LABS: ERYTHROCYTE SEDIMENTATION RATE 1 MM/HR (0-30)
--- NOTE | 2022-01-23 10:44 | Diagnostic Imaging Report ---
EXAMINATION: Chest 2 view HISTORY: Preoperative evaluation COMPARISON: None available. FINDINGS: Heart size and pulmonary vasculature are normal. The lungs are clear without consolidation, pleural effusion, or pneumothorax. Degenerative changes of the thoracic spine. Osseous structures are otherwise intact. IMPRESSION: 1. No acute radiographic abnormality in the chest. Dictated by: Dictated on workstation # [id number]
== END 2022-01-23 12:07 ==
LOC: PREOP 08:12
PROVIDERS: ATTEND Orthopaedic Surgery
DX: M17.11 Unilateral primary osteoarthritis, right knee (principal)
CPT/HCPCS: 36415; 71046; 80053; 81000; 82308; 85025; 85610; 85652; 86850; 86900; 86901; 87081; 93005